=== PATIENT | female | born 1955 ===

== ENCOUNTER 2016-11-16 15:50 | Emergency (ER) | payer BC ==
[2016-11-16 16:55] VITALS: BP 146/66
--- NOTE | 2016-11-16 19:22 | UC ---
Complaint Female HPI - HPI Summary HPI Summary: PT C/O SEVERAL DAYS OF VAGINAL BURNING - WORSE WITH URINATION. THINKS IT IS A UTI. NOT SURE OF SHE HAS VAGINAL D/C BECAUSE SHE USES ESTRACE CREAM. NOT WORRIED ABOUT STD. - History Of Current Complaint Chief Complaint: UCGU Stated Complaint: POSS UTI Time Seen by Provider: 11/16/16 18:41 Hx Obtained From: Patient Onset/Duration: Gradual Onset, Lasting Days, Still Present Timing: Constant Severity Initially: Moderate Severity Currently: Moderate Pain Intensity: 0 Pain Scale Used: 0-10 Numeric Character: Burning Aggravating Factor(s): Urination Alleviating Factor(s): Position Associated Signs And Symptoms: Positive: Back Pain. Negative: Fever, Nausea - Allergies/Home Medications Allergies/Adverse Reactions: Allergies Allergy/AdvReac Type Severity Reaction Status Date / Time Ciprofloxacin [From Cipro] Allergy Headache Verified 11/16/16 16:55 Erythromycin Allergy GI Upset Verified 11/16/16 16:55 NSAIDs Allergy GI Upset Verified 11/16/16 16:55 Home Medications: Home Medications NK [No Home Medications Reported] 11/16/16 [History Confirmed 11/16/16] PMH/Surg Hx/FS Hx/Imm Hx Previously Healthy: Yes - Surgical History Surgical History: Yes Surgery Procedure, Year, and Place: knee surgeries, appendectomy, ovary removed - Family History Known Family History: Positive: Hypertension, Renal Disease - Social History Alcohol Use: None Substance Use Type: None Smoking Status (MU): Former Smoker Review of Systems Constitutional: Negative ENT: Negative Respiratory: Negative Cardiovascular: Negative Gastrointestinal: Negative Genitourinary: Dysuria, Frequency, Urgency Musculoskeletal: Other: - BACK PAIN All Other Systems Reviewed And Are Negative: Yes Physical Exam Triage Information Reviewed: Yes Appearance: Well-Appearing, No Pain Distress, Well-Nourished Vital Signs: Initial Vital Signs Temp 98.8 F 11/16/16 16:52 Pulse 82 11/16/16 16:52 Resp 20 11/16/16 16:52 BP 146/66 11/16/16 16:52 Pulse Ox 97 11/16/16 16:52 Vital Signs Reviewed: Yes Eyes: Positive: Conjunctiva Clear ENT: Positive: Hearing grossly normal Neck: Positive: Supple Respiratory: Positive: No respiratory distress, No accessory muscle use Cardiovascular: Positive: Pulses Normal Abdomen Description: Positive: Soft. Negative: Nontender, CVA Tenderness (R), CVA Tenderness (L), Distended, Guarding Musculoskeletal: Positive: No Edema Neurological: Positive: Alert Psychological: Positive: Age Appropriate Behavior Skin: Negative: rashes UC Physical Exam Vital Signs On Initial Exam: Initial Vitals Temp Pulse Resp BP Pulse Ox 98.8 F 82 20 146/66 97 11/16/16 16:52 11/16/16 16:52 11/16/16 16:52 11/16/16 16:52 11/16/16 16:52 - Genitalia Exam Female Genitourinary: Normal External Exam, Vagina without Blood/Discharge, Other - POLYP PROTRUDING FROM POSTERIOR EXTERNAL OS. POSSIBLE ENDOCERVICAL LESION/MASS SEEN. NON TENDER. NO CMT. Diagnostics - Laboratory Diagnostic Studies Completed/Ordered: URINE DIP UNREMARKABLE Complaint Female Dx - Differential Dx/Diagnosis Provider Diagnoses: VAGINITIS, CERVICAL POLYP Discharge - Discharge Plan Condition: Stable Disposition: HOME Patient Education Materials: Vaginitis (ED) Referrals: Antionette Dennis NP [Nurse Practitioner] - 1 Week Isela Cooper MD [Medical Doctor] - 1 Week Additional Instructions: YOUR URINE TEST WAS NEGATIVE FOR UTI. VAGINAL SWAB SENT TO TEST FOR VARIOUS TYPES OF VAGINITIS. WE WILL CALL YOU IF YOU REQUIRE TREATMENT BASED ON THE RESULTS. ON PELVIC EXAM YOU HAVE A SIGNIFICANT CERVICAL POLYP. PLEASE FOLLOW-UP WITH WIND DEVELOPMENT DIRECTOR FOR FURTHER EVALUATION.
[2016-11-16] MEDS ORDERED: Phenazopyridine TAB* 100 MG PO ONE (19:37)
--- NOTE | 2016-11-17 19:00 | UC ---
Progress - Progress Note Progress Note: No evidence of Trichomonas, bacterial vaginosis or candidiasis, follow with BAG SE[facility]ER as planned or return if symptoms worsen
== END 2016-11-16 19:50 | disposition home or self-care (01) ==
LOC: UCEAST 15:50
DX: N76.0 Acute vaginitis (principal); N84.1 Polyp of cervix uteri; Z87.891 Personal history of nicotine dependence
CPT/HCPCS: 81003; 87480; 87510; 87660; 99212; A9270-GY; G0463

== ENCOUNTER 2017-07-11 17:35 | Emergency (ER) | payer BC ==
[2017-07-11 18:49] VITALS: BP 156/72
[2017-07-11] MEDS ORDERED: Ibuprofen TAB* 600 MG PO ONE (19:00)
[2017-07-11] MEDS ORDERED: HYDROcodone/ACETAMIN 5-325 MG* 1 TAB PO ONE (19:00)
--- NOTE | 2017-07-11 19:28 | UC ---
Shoulder Pain HPI - HPI Summary HPI Summary: While skiing today pt fell onto tip of bent elbow, immediately pain in R elbow and shoulder. Denies hx of shoulder dislocation or surgery. - History of Current Complaint Chief Complaint: UCUpperExtremity Stated Complaint: ELBOW SHOULDER INJURY Time Seen by Provider: 07/11/17 18:59 Hx Obtained From: Patient ?: No Onset/Duration: Sudden Onset Timing: Constant Severity Initially: Severe Severity Currently: Moderate Character: Aching Aggravating Factor(s): Movement Alleviating Factor(s): Rest, Ice Associated Signs And Symptoms: Negative: Numbness/Tingling Related History: Dominant Hand Right - Allergies/Home Medications Allergies/Adverse Reactions: Allergies Allergy/AdvReac Type Severity Reaction Status Date / Time Ciprofloxacin [From Cipro] Allergy Headache Verified 07/11/17 18:50 Erythromycin Allergy GI Upset Verified 07/11/17 18:50 NSAIDs Allergy GI Upset Verified 07/11/17 18:50 PMH/Surg Hx/FS Hx/Imm Hx Previously Healthy: Yes - Surgical History Surgical History: Yes Surgery Procedure, Year, and Place: knee surgeries, appendectomy, ovary removed - Family History Known Family History: Positive: Hypertension, Renal Disease - Social History 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, 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 Alcohol Use: None Substance Use Type: None Smoking Status (MU): Former Smoker Review of Systems Constitutional: Negative Skin: Negative Eyes: Negative ENT: Negative Respiratory: Negative Cardiovascular: Negative Gastrointestinal: Negative Genitourinary: Negative Motor: Negative Neurovascular: Negative Musculoskeletal: Arthralgia, Decreased ROM Neurological: Negative Psychological: Negative Is Patient Immunocompromised?: No All Other Systems Reviewed And Are Negative: Yes Physical Exam Triage Information Reviewed: Yes Appearance: Well-Appearing, Pain Distress - mod Vital Signs: Initial Vital Signs Temp 99.7 F 07/11/17 18:46 Pulse 99 07/11/17 18:46 Resp 18 07/11/17 18:46 BP 156/72 07/11/17 18:46 Pulse Ox 100 07/11/17 18:46 Vital Signs Reviewed: Yes Eye Exam: Normal Eyes: Positive: Conjunctiva Clear ENT Exam: Normal ENT: Positive: Normal ENT inspection, Pharynx normal Dental Exam: Normal Neck exam: Normal Neck: Positive: Supple, Nontender Respiratory Exam: Normal Respiratory: Positive: Chest non-tender, Lungs clear, Normal breath sounds, No respiratory distress, No accessory muscle use Cardiovascular Exam: Normal Cardiovascular: Positive: RRR, No Murmur Musculoskeletal Exam: Other - 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 R elbow contusion Discharge - Discharge Plan Condition: Stable Disposition: HOME Prescriptions: Oxycodone W/ Acetaminophen [Endocet 5-325 mg] 1 tab PO QID PRN #20 tab MDD 4 PRN Reason: pain Patient Education Materials: Proximal Humerus Fracture (ED) Referrals: Aleja Connors MD [Medical Doctor] - 2 Days Additional Instructions: Keep the sling on and follow up with the orthopedist this week. If you have numbness, weakness, or paleness in the hand or wrist, please go to the emergency department.
--- NOTE | 2017-07-11 20:18 | RAD ---
HISTORY: Fall, right elbow pain COMPARISONS: None VIEWS: 3, Frontal, lateral, and oblique views of the right elbow. FINDINGS: Evaluation is limited by positioning. BONE DENSITY: Normal. BONES: There is no displaced fracture. JOINTS: There is no arthropathy. ALIGNMENT: There is no dislocation. SOFT TISSUES: Unremarkable. OTHER FINDINGS: None. IMPRESSION: NO ACUTE OSSEOUS INJURY. IF SYMPTOMS PERSIST, RECOMMEND REPEAT IMAGING.
--- NOTE | 2017-07-11 20:19 | RAD ---
HISTORY: Fall, right shoulder pain COMPARISONS: None VIEWS: 4, Frontal internal rotation, external rotation, and outlet views of the right shoulder FINDINGS: BONE DENSITY: Normal. BONES: There is a comminuted and angulated fracture of the surgical neck of the right humerus without significant displacement. JOINTS: There is no arthropathy. ALIGNMENT: There is no dislocation. SOFT TISSUES: Unremarkable. OTHER FINDINGS: None. IMPRESSION: COMMINUTED AND ANGULATED FRACTURE OF THE PROXIMAL RIGHT HUMERUS
[2017-07-11] MEDS: HYDROcodone/ACETAMIN 5-325 MG* 1 TAB PO ONE ×2 (20:25→20:31)
== END 2017-07-11 20:32 | disposition home or self-care (01) ==
LOC: UCEAST 17:35
DX: S50.01XA Contusion of right elbow, initial encounter (principal); S42.201A Unspecified fracture of upper end of right humerus, initial encounter for closed fracture; V00.321A Fall from snow-skis, initial encounter; Y93.23 Activity, snow (alpine) (downhill) skiing, snowboarding, sledding, tobogganing and snow tubing; Y92.9 Unspecified place or not applicable; Z88.6 Allergy status to analgesic agent; Z88.1 Allergy status to other antibiotic agents; Z87.891 Personal history of nicotine dependence
CPT/HCPCS: 99212; A9270-GY; G0463

== ENCOUNTER 2017-12-13 12:30 | Day surgery (SDC) | payer BC ==
--- NOTE | 2017-12-07 15:02 | HP ---
PREOPERATIVE HISTORY AND PHYSICAL: DATE OF ADMISSION/SURGERY: 12/13/17 - [facility] DATE OF OFFICE VISIT: 12/07/17 ATTENDING SURGEON: Dr. Tom Curiel.* (DICTATED BY LADAN JC) PROCEDURE: Right shoulder arthroscopic rotator cuff repair, decompression, debridement, subpectoral biceps tenodesis. CHIEF COMPLAINT: Right shoulder pain. HISTORY OF PRESENT ILLNESS: Carmen is a 62-year-old female who presents to the clinic for right shoulder pain due to a rotator cuff tear that occurred with the proximal humerus fracture on 07/11/17 as well as biceps tendinitis. She has failed conservative measures and has therefore agreed to undergo right shoulder arthroscopic rotator cuff repair, decompression, debridement, and subpectoral biceps tenodesis with Dr. Curiel on 12/13/17. PAST MEDICAL HISTORY: No current problems. PAST SURGICAL HISTORY: 1. Left knee arthroscopy x3. 2. Two meniscus surgeries and an ACL reconstruction. 3. Abdominal surgery in 1971. 4. Tonsillectomy and adenoidectomy. The patient denies prior complications with the anesthesia. MEDICATIONS: Tramadol 50 mg 1 twice a day as needed for pain. ALLERGIES: CIPRO, ERYTHROMYCIN, NSAIDS, and LATEX. FAMILY HISTORY: Positive for diabetes and cancer on the paternal side and stroke on the maternal side. 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 She lives with her . She smoked tobacco in college for 4 years, but quit several years ago. She denies any alcohol consumption. She is right hand dominant. REVIEW OF SYSTEMS: A 14-point review of systems was reviewed with the patient. Positive for current complaint, otherwise negative. Denies fever, chills, chest pain, shortness of breath, history of bleeding disorder, history of DVT or PE, or history of MRSA. PHYSICAL EXAMINATION GENERAL: A 62-year-old well-developed, well-nourished female in no acute distress. Alert and oriented x3. Appropriate mood and affect. Appropriate balance and coordination of the upper extremities. VITAL SIGNS: Height 69, weight 170, blood pressure 160/84, respiratory rate 20 , temperature 98.3, BMI 25.1. HEENT: Normocephalic, atraumatic. PERRLA. Throat clear. NECK: Supple. PULMONARY: Lungs clear to auscultation bilaterally. No wheezing, rhonchi, or rales. CARDIO: Regular rate and rhythm. S1 and S2. No murmurs, gallops, or rubs. No edema. ABDOMEN: Positive bowel sounds, soft, nontender. MUSCULOSKELETAL: Right upper extremity: Skin is intact. No warmth or erythema. Diffuse tenderness to palpation. Forward flexion to 90, passively to 120; abduction to 60; external rotation to 20; internal rotation to the lateral hip. +2 radial pulse. +4/5 strength to rotator cuff testing with pain. Sensation is intact to light touch distally. NEURO: Alert and oriented x3. Cranial nerves grossly intact. Sensation is intact to light touch. DIAGNOSTIC STUDIES: X-rays and MRI revealed full-thickness tear of the supraspinatus tendon and interval healing of the proximal humerus fracture. IMPRESSION: Right shoulder rotator cuff tear and biceps tendinitis. PLAN: The patient is scheduled to undergo a right shoulder arthroscopic rotator cuff repair, decompression, debridement, and subpectoral biceps tenodesis with Dr. Curiel on 12/13/17. She will follow up in 10 to 14 days postop for followup and suture removal. Percocet will be used for postop pain management and Keflex for antibiotic prophylaxis. LADAN JC [id number]/[facility] #: [id number] MTDD
[~2017-12-13 12:30] MED LIST: Buffered Lidocaine 0.9% SYRIN* 5 ML/SYR SYRINGE INTRADERM ONE; Dexamethasone IV* 4 MG/ML 1 ML (4 MG) IV SLOW PU ONE; Dexamethasone IV* 4 MG/ML 1 ML (4 MG) ONE; Famotidine IV* 10 MG/ML 2 ML (20 mg) IV ONE; Ondansetron ODT TAB* 4 MG PO ONE
[2017-12-13] MEDS ORDERED: Famotidine IV* 10 MG/ML 2 ML (20 mg) ONE (12:31)
[2017-12-13] MEDS ORDERED: Ondansetron ODT TAB* 4 MG ONE (12:32)
[2017-12-13] MEDS ORDERED: ceFAZolin 2 GM PREMIX (*) 2 GM/50 ML BAG IVPB ONE (12:44)
[2017-12-13] MEDS ORDERED: Bupivacaine 0.5% SDV PF* 30ML VIAL ONE (13:07)
[2017-12-13] MEDS ORDERED: ROPIVACAINE 5 MG/ML 30 ML BTL (0.5%) ONE (13:35)
[2017-12-13] MEDS ORDERED: fentaNYL* 50 MCG/ML 2 ML VIAL (100 MCG VIAL) ONE (13:46)
[2017-12-13] MEDS ORDERED: Midazolam* 1 MG/ML 5 ML VIAL (5 MG) ONE (13:46)
[2017-12-13] MEDS ORDERED: Propofol* 10 MG/ML 20 ML BTL IV PUSH ONE (13:47)
[2017-12-13] MEDS ORDERED: methylPREDNISolone ACETATE 80* 80 MG/ML 1 ML VIAL ONE (14:58)
[2017-12-13] MEDS ORDERED: fentaNYL* 50 MCG/ML 2 ML VIAL (100 MCG VIAL) IV PRN (15:35)
[2017-12-13] MEDS ORDERED: HYDROmorphone INJ* 1 MG/ML CARPUJECT SYRINGE IV PRN (15:35)
[2017-12-13] MEDS ORDERED: oxyCODONE/Acetamin 5/325 MG* TAB PO PRN (15:35)
[2017-12-13] MEDS ORDERED: Naloxone* 0.4 MG/ML 1 ML VIAL IV PRN (15:35)
[2017-12-13] MEDS ORDERED: DiMENhydriNATE IV* 50 MG/ML VIAL IV PUSH PRN (15:35)
[2017-12-13] MEDS ORDERED: Ondansetron INJ* 2 MG/ML VIAL IV PRN (15:35)
[2017-12-13 16:45] VITALS: BP 142/77
--- NOTE | 2017-12-15 05:43 | OP ---
DATE OF OPERATION: 12/13/17 - [facility] DATE OF : 57 SURGEON: Tom Curiel MD DRUM OPERATOR: LADAN Powers. An judicial administrative assistant was needed for the entirety of the case to help with positioning, retraction and was utilized throughout all portions of the case. ANESTHESIOLOGIST: Dr. Morgan. ANESTHESIA: General interscalene block. PRE-OP DIAGNOSIS: Right shoulder status post proximal humerus fracture with rotator cuff tear and impingement. POST-OP DIAGNOSIS: Intact rotator cuff, healed proximal humerus fracture with bicipital tendonitis and subacromial impingement. OPERATIVE PROCEDURE: 1. Right shoulder arthroscopy with extensive glenohumeral debridement including lysis of adhesions. 2. Cervical decompression with acromioplasty. 3. Subpectoral biceps tenodesis. 4. Injection of 80 mg of Depo-Medrol. COMPLICATIONS: None. ESTIMATED BLOOD LOSS: Minimal. IMPLANTS: One 2.8 mm Q-Fix. INDICATIONS: Carmen Reynolds is a 62-year-old female who sustained humerus fracture in 07/18/17. It was treated conservatively but she had persistent pain and limited range of motion. She is very active. She had an MRI that demonstrates a full thickness tear. Risks and benefits of surgery were discussed at length included, but not limited to, bleeding, infection, damage to nerves, vessels, surrounding structures, wound nonhealing, persistent pain, need for further surgery, scarring, stiffness, incomplete relief of symptoms, risks of anesthesia. DESCRIPTION OF PROCEDURE: The patient was greeted in the preoperative area by the attending surgeon. Correct extremity was marked and consent was confirmed. The patient was brought back to the operating suite where she was placed in supine position on the operating table. She then underwent general anesthesia endotracheal intubation after which she was placed in the left lateral decubitus position with all bony prominences padded. She was secured with a pegboard. The right shoulder was draped unsterile with 10 pounds of traction. The left shoulder was then prepped and draped in the usual sterile fashion beginning with chlorhexidine soap, scrub, and alcohol wipe and a final prep of ChloraPrep. After appropriate surgical pause indicating side, site, procedure, administration of antibiotics, a standard posterolateral portal was made sharply with 11 blade. The scope was introduced into the joint. The capsule was very tight and difficult to introduce through the joint, initially determined she had some signs of adhesive capsulitis. The glenohumeral joint was examined. There was grade 1 to 2 changes to the humerus. The glenoid had grade 0 to 1 changes. The biceps was subluxed anteriorly with erythema and irritation. The anterior portal was made in an outside-in fashion. There was abundant tight capsule interval. The portal was placed. The shaver was used to debride back the anterior, posterior, and superior labrum and some of the chondrosis. The undersurface of the supraspinatus looked intact. There was no evidence of a full thickness tear. Subscapularis was intact. Biceps was carefully tenotomized and the interval tissue was then debrided back using the electrocautery device. Final images were obtained. Attention was directed to subacromial space. The scope was positioned in the subacromial space. There was abundant bursa present. There is not a lot of space for the rotator cuff to glide due to the fracture. The rotator cuff was probed and found to be intact. The bursa as well as the undersurface of the acromion were then skeletonized using electrocautery device. A 4-0 oval rober was used to do an acromioplasty, which allowed for more room for movement of the cuff. Final images were obtained. An 18-gauge needle was placed under arthroscopic visualization. The attention was directed to the biceps. The bed was air planed to the right side. The anterior aspect of the shoulder was prepped again using ChloraPrep. The 15-blade was used to make an incision in line of the biceps encompassing the inferior two-thirds of the pec. The biceps were brought through the groove, found to have abundant synovitis or irritation. The groove was prepared in the usual fashion. Q-Fix was deployed with excellent purchase. Sutures were passed through the tendon in Gomez-Marlon type configuration approximately 1 cm proximal to the musculotendinous junction. The biceps excess stump was excised and the biceps was shuttled back to the wound. Wounds were copiously irrigated with sterile saline. The anterior wound was closed in layers with 2-0 Vicryl, 3-0 Monocryl, and portals with 3-0 nylon. Sterile dressings were applied. A Cryo/Cuff and UltraSling were applied. 80 mg of Depo-Medrol were injected into the subacromial space. She tolerated this. She was awoken from anesthesia and transferred to the PACU in stable condition. POSTOPERATIVE PLAN: She will be nonweightbearing. She will start therapy next week. She will be in the sling for about 4 to 5 weeks. She will be discharged on pain medications, antibiotics. DVT prophylaxis was considered but deferred due to no previous personal or family history. [id number]/[facility] #: [id number] MTDD
== END 2017-12-13 16:47 | disposition home or self-care (01) ==
LOC: OREAST 12:30
PROVIDERS: ATTEND Orthopaedic Surgery
DX: M75.41 Impingement syndrome of right shoulder (principal); M75.21 Bicipital tendinitis, right shoulder; Z87.891 Personal history of nicotine dependence; G89.18 Other acute postprocedural pain
CPT/HCPCS: 88304; A9270-GY; C1776; J0690; J1040; J1100; J2250; J2704; J2795; J3010